=== PATIENT | female | born 1985 | race Caucasian/White ===

== ENCOUNTER → 2016-06-08 | Outpatient (CLI) | payer OTHER ==
--- NOTE | 2016-06-08 10:00 | CT ---
Unenhanced CT Scan of the Paranasal Sinuses CLINICAL HISTORY: 30-year-old female with some difficulty breathing through her nose, and a history o f Dominique granulomatosis. Evaluate for sinusitis. ICD 10 Diagnostic Code: M31.30. TECHNIQUE: Unenhanced helical CT images were acquired from the level of the frontal sinuses caudally to the maxillary alveolar ridge, with images reformatted at 2.50 and 0.625 mm increments, and reviewe d in soft tissue and bone windows. Parasagittal and paracoronal reconstructed images are reviewed on the workstation. The DFOV is 16.7 cm. A dose reduction protocol was used. COMPARISON STUDY: None. FINDINGS: The majority of the frontal sinus is patent; however, there is some mucosal thickening at t he frontal-ethmoidal recess on the left. There is some mild bilateral ethmoid mucosal thickening, lef t greater than right. There is a moderate degree of leftward nasal septal deviation, involving both t he membranous and osseous components. There is no nasal septal perforation appreciated, although ther e is pronounced mucosal thickening involving the nasal turbinates, and there is a moderate amount of dependent mucosal change seen in the inferior nasal cavities bilaterally. There is chronic mucosal th ickening in the floor of each maxillary sinus, and some mild mucosal thickening involving the roof of the right ostiomeatal complex (although the complex still remains patent on the right). There is com plete opacification of the left ostiomeatal complex secondary to mucosal thickening. The presence of sinus and nasal mucosal thickening could obscure a polyp or a mucous retention cyst. There is also tr yusuf mucosal thickening involving portions of the sphenoid sinuses. There is no air-fluid level to sug gest an acute sinusitis. The maxillary sinus garza appear intact. There is no compromise of the ezequiel a papyracea. There is no evidence of a right or left nasal fracture, and the nasal maxillary spines a re intact, as are the medial and lateral pterygoid plates. The visualized aspects of the supra and in fratentorial structures are grossly unremarkable. The orbits appear normal, with no proptosis. IMPRESSION: 1. Moderate leftward nasal septal deviation, with no evidence of nasal septal perforation. 2. Mild diffuse chronic panparanasal sinus mucosal thickening which could obscure small polyps or muc ous retention cyst(s). 3. Nasal turbinate congestion with dependent mucus in the inferior nasal cavities. 4. Occlusion of the left ostiomeatal complex.
== END ==
LOC: FIMAGING 08:52
PROVIDERS: ATTEND Internal Medicine Rheumatology
DX: J34.2 Deviated nasal septum (principal); J32.9 Chronic sinusitis, unspecified